=== PATIENT | female | born 1985 | race Hispanic/Latino ===

== ENCOUNTER 2018-02-20 07:20 | Outpatient (CLI) | payer BC ==
--- NOTE | 2018-02-20 10:42 | Mammography Report ---
Bilateral mammogram and sonogram: No previous studies available. CAD study utilized. History: Bilateral lumpy breasts. Findings: Predominance of adipose tissue bilaterally. No mass or microcalcification. Benign axillary nodes. Sonographic examination reveals no definite cystic or solid mass. Impression: Benign findings. If clinically indicated followup may be recommended. BI-RADS CATEGORY: 2 = Benign ACR BI-RADS MAMMOGRAPHIC CODES: 0 = Needs additional imaging evaluation; 1 = Negative; 2 = Benign; 3 = Probably benign; 4 = Suspicious; 5 = Malignant; 6 = Known biopsy-proven malignancy COMMENT: 1. Dense breast tissue, i.e., adenosis, fibrocystic changes, etc., may obscure an underlying neoplasm. 2. Approximately 10% of cancers are not detected with mammography. 3. A negative mammography report should not delay biopsy if a clinically suspicious mass is present. COMMENT: Patient follow-up letters are generated in [id number].
== END 2018-02-20 07:21 | disposition home or self-care (01) ==
LOC: US 07:20
PROVIDERS: ATTEND Family Medicine Adult Medicine
DX: N60.19 Diffuse cystic mastopathy of unspecified breast (principal); R92.8 Other abnormal and inconclusive findings on diagnostic imaging of breast
CPT/HCPCS: 77066